=== PATIENT | female | born 1970 | race Caucasian/White ===

== ENCOUNTER 2017-06-28 12:15 | Emergency (ER) | payer OTHER ==
[~2017-06-28] VITALS: Ht 175.3 cm; Wt 74.7 kg
[~2017-06-28 12:15] MED LIST: AMPH20TA2 PO; FLUO10CA48 PO; MULT-506 PO
[2017-06-28 12:19] VITALS: TEMP 36.7; Ht 175.3 cm; Wt 74.7 kg
--- NOTE | 2017-06-28 13:33 | DIAGNOSTIC IMAGING REPORT ---
HEAD WITHOUT CONTRAST (CT) CT DOSE: 537.48 mGy.cm HISTORY: Neuropathy.. Mental status change. distal extrem paresthesias TECHNIQUE: Multiaxial CT images of the head were performed without the use of intravenous contrast. A dose lowering technique was utilized adhering to the principles of ALARA. Comparison: None. Findings: The paranasal sinuses and mastoid air cells are clear. The calvarium and skull base are intact. The ventricles and sulci are within normal limits. There is no mass, hematoma, midline shift, or acute infarct. Impression: No acute intracranial abnormality. The above report was generated using voice recognition software. It may contain grammatical, syntax or spelling errors. Electronically signed by: Riley Tafoya M.D. 06/28/2017 1:32 PM Dictated Date/Time: 06/28/2017 1:30 PM
[2017-06-28] MEDS ORDERED: LISD70CA PO (14:09)
[2017-06-28] MEDS ORDERED: OMEP20CA9 PO (14:09)
--- NOTE | 2017-06-28 14:09 | EMERGENCY ROOM VISIT NOTE ---
History Report prepared by [place]: Baltazar Tarango Under the Supervision of: Dr. Chava Escamilla D.O. First contact with patient: 12:33 Chief Complaint: NEURO SYMPTOMS Stated Complaint: HANDS AND FEET ASLEEP Nursing Triage Summary: patient states when she is sleeping her hands and feet fall asleep and she wakes up with them painful. states she went to PCP on tuesday and he ran some tests but has not gotten results back. states it is irritating and painful History of Present Illness The patient is a 46 year old female who presents to the Emergency Room with complaints of intermittent bilateral hand and feet numbness and tingling beginning three weeks ago. Her symptoms are worse in her hands. She states "it feels like they are asleep". The patient states that her symptoms worsen when she goes to sleep, and improve with movement. She also complains of neck pain. She notes that she has "shooting" lower back pain after standing for a while as well. The patient was seen by her PCP four days ago and had blood-work done, but has not heard back her results. She was using wraps around her hands recently, but this has not helped her symptoms. Source of History: patient Onset: Three weeks ago Position: hand (bilateral), foot (bilateral) Quality: other (numbness and tingling) Timing: intermittent Modifying Factors (Worsening): other (sleeping) Modifying Factors (Relieving): movement Associated Symptoms: + neck pain, + back pain (lower, "shooting", after standing for a while) Review of Systems See HPI for pertinent positives & negatives. A total of 10 systems reviewed and were otherwise negative. Past Medical & Surgical Medical Problems: (1) No Known Active Medical Problems Family History No pertinent family history stated. Social History Smoking Status: Current Every Day Smoker Drug Use: marijuana, other Marital Status: single Housing Status: lives with family Occupation Status: employed Current/Historical Medications Scheduled Bupropion (Wellbutrin Sr), 450 MG PO QAM Lisdexamfetamine Dimesylate (Vyvanse), 70 MG PO DAILY Multivitamin (Multivitamin), 1 TAB PO DAILY Omeprazole (Prilosec), 20 MG PO DAILY Allergies Coded Allergies: Sulfa Antibiotics (Unverified Allergy, Unknown, UNKNOWN, 06/28/17) Physical Exam Vital Signs Date Time Temp Pulse Resp B/P (MAP) Pulse Ox O2 Delivery O2 Flow Rate FiO2 06/28/17 12:19 36.7 78 20 128/73 100 Room Air Physical Exam VITAL SIGNS: were reviewed as above. GENERAL:Non-toxic in appearance. SKIN: Warm dry and pink. HEAD: Normocephalic and atraumatic. OROPHARYNX: Is clear and moist NECK: Supple without lymphadenopathy or meningismus. LUNGS: clear. HEART: Regular rate and rhythm. ABDOMEN: Soft and nontender. EXTREMITIES: Warm and well perfused. NEUROLOGICALLY: Awake alert and oriented without focal deficit. Cranial nerves 2 -12 are intact. There is no pronator drift. Cerebellar testing is within normal limits. There is no nystagmus. There is no facial droop. Speech is clear. Vision is grossly normal. MUSCULOSKELETAL: Good muscle tone. No evidence of trauma. Medical Decision & Procedures ER Provider Diagnostic Interpretation: Radiology results as stated below per my review and radiologist interpretation: HEAD WITHOUT CONTRAST (CT) Findings: The paranasal sinuses and mastoid air cells are clear. The calvarium and skull base are intact. The ventricles and sulci are within normal limits. There is no mass, hematoma, midline shift, or acute infarct. Impression: No acute intracranial abnormality. The above report was generated using voice recognition software. It may contain grammatical, syntax or spelling errors. Electronically signed by: Riley Tafoya M.D. ED Course 1253: Previous medical records were reviewed. The patient was evaluated in room B6. A complete history and physical examination was performed. 1252: Laboratory results obtained from [facility]. Labs included a complete metabolic panel which was normal. TSH was normal. Vitamin B-12 level was normal. Folic acid level was normal. 1408: On reevaluation, the patient is resting comfortably. I discussed the results and findings with the patient. She verbalized agreement of the treatment plan. She was discharged home. Medical Decision Differential includes acute coronary syndrome, myocardial infarction, CVA, TIA, anemia, infection, pneumonia, UTI, pyelonephritis, poor nutrition, dehydration, electrolyte disturbance, and hypoglycemia. This is a 46-year-old female who presents to the ED with a chief complaint of paresthesias in her hands and feet. She states that this is been going on for the past 3 weeks. She states that she saw her doctor on Tuesday and had blood test performed but is awaiting the results. It occurred this morning and she came in for evaluation. The patient's blood work included a complete metabolic panel, vitamin D B12, folic acid, cholesterol and thyroid function. These tests were unremarkable for abnormalities. The patient's physical exam today reveals normal strength in the extremities, normal pulses, normal capillary refill and no edema. There was no abnormalities on my exam. No tenderness with the exam. Full range of motion. The patient was told the results of her blood work. CT scan of the brain did not show acute process. The patient was told to follow-up with her PCP. Neurology and/or endocrine follow-up might be beneficial. Medication Reconcilliation Current Medication List: was personally reviewed by me Blood Pressure Screening Patient's blood pressure: Normal blood pressure Blood pressure disposition: Did not require urgent referral Impression Primary Impression: Paresthesia of both hands Additional Impression: Paresthesia of both feet Scribe Attestation The scribe's documentation has been prepared under my direction and personally reviewed by me in its entirety. I confirm that the note above accurately reflects all work, treatment, procedures, and medical decision making performed by me. Departure Information Dispostion Home / Self-Care Referrals Riley Mccabe M.D. (PCP) Patient Instructions My [facility] Additional Instructions Follow-up with your doctor for further care and evaluation in 1-2 days. Return to the emergency department for worsening or new symptoms or any concerns. You have been examined and treated today on an emergency basis only. This is not a substitute for, or an effort to provide, complete comprehensive medical care. It is impossible to recognize and treat all injuries or illnesses in a single emergency department visit. It is therefore important that you follow up closely with your doctor. Call as soon as possible for an appointment. Problem Qualifiers
[2017-06-28] MEDS ORDERED: BUPR-79 PO (14:11)
[2017-06-28 14:21] VITALS: BP 126/78; PULSE 75; O2SAT 96
== END 2017-06-28 14:22 | disposition home or self-care (01) ==
LOC: C.EDB 12:16
DX: R20.0 Anesthesia of skin (principal); F17.200 Nicotine dependence, unspecified, uncomplicated; F12.90 Cannabis use, unspecified, uncomplicated

== ENCOUNTER 2021-12-06 04:37 | Inpatient (IN) ==
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
[2021-12-06 06:09] LABS: Basophils # (auto) 0.02 K/uL (0-0.2); Basophils % (auto) 0.3 %; Eosinophils # (auto) 0.02 K/uL (0-0.50); Eosinophils % (auto) 0.3 %; Hematocrit (blood only) 41.1 % (34.1-44.9); Hemoglobin 13.8 g/dl (12.0-16.0); Lymphocytes # (auto) 1.91 K/uL (1.2-3.4); Lymphocytes % (auto) 33.2 %; Mean Corpuscular Hemoglobin 29.7 pg (25.0-34.0); Mean Corpuscular Hgb Conc 33.6 g/dL (32.0-36.0); Mean Corpuscular Volume 88.4 fL (80.0-100.0); Mean Platelet Volume 10.2 fL (9.4-12.3); Monocytes # (auto) 0.51 K/uL (0.24-0.82); Monocytes % (auto) 8.9 %; Neutrophils % (auto) 57.3 %; Platelet Count 291 K/uL (130-400); RDW Coefficient of Variation 13.9 % (11.5-14.5); Red Blood Count 4.65 M/uL (3.93-5.22); White Blood Count 5.76 K/ul (4.8-10.8)
[2021-12-06] MEDS ORDERED: NICOTINE 14 MG/24 HR PATCH TD STA (06:23)
[2021-12-06 06:33] LABS: Appearance Urine Clear (Clear); Bilirubin Urine Negative (Negative); Blood Urine Negative (Negative); Color Urine Yellow; Glucose Urine UA Negative (Negative); Ketones Urine Negative (Negative); Leukocyte Esterase Urine Negative (Negative); Nitrite Urine Negative (Negative); Protein Urine Negative (Negative); Specific Gravity Urine 1.005 (1.000-1.030); Urobilinogen Urine Negative (Negative)
[2021-12-06 06:39] LABS: Alanine Aminotransferase 11 U/L (7-52); Albumin Globulin Ratio 1.3 (0.9-2); Albumin Level 4.5 gm/dl (3.4-5.0); Alkaline Phosphatase 94 U/L (34-104); Anion Gap 10 (3-11); Aspartate Aminotransferase 19 U/L (13-39); BUN Creatinine Ratio 13.6 (10-20); Bilirubin,Total 0.4 mg/dl (0.2-1.0); Blood Urea Nitrogen 9 mg/dl (6-23); Calcium 9.8 mg/dl (8.5-10.1); Carbon Dioxide 24 mmol/L (21-32); Chloride 102 mmol/L (98-107); Est GFR (African American) 118.5 ml/min; Est GFR (Non-African American) 102.3 ml/min; Globulin 3.6 gm/dl (2.5-4.0); Glucose 111 mg/dl (70-99(Fasting)); Potassium 3.3 mmol/L (3.5-5.1); Sodium 136 mmol/L (136-145); Total Protein 8.1 gm/dl (6.0-8.3)
[2021-12-06 06:42] LABS: Acetaminophen < 3 ug/ml (10-30); Salicylate < 3.0 mg/dl (3.0-30)
[2021-12-06] MEDS ORDERED: OLANZapine 10 MG TAB PO STA (07:01)
[2021-12-06] MEDS ORDERED: LORazepam 2 MG/1 ML VIAL IM STA (07:16)
[2021-12-06] MEDS ORDERED: HALOPERIDOL LACTATE 5 MG/ML 1 ML VIAL IM STA (07:16)
[2021-12-06 07:57] LABS: Amphetamines+Metham, Urine Neg (Neg); Barbiturates, Urine Neg (Neg); Benzodiazepine, Urine Pos (Neg); Cocaine, Urine Neg (Neg); MDMA (Ecstacy), Urine Pos (Neg); Methadone, Urine Neg (Neg); Opiate, Urine Neg (Neg); Phencyclidine, Urine Neg (Neg)
[2021-12-06] MEDS ORDERED: POTASSIUM CHLORIDE CRTAB 20 MEQ TABCR PO ONE (10:48)
[2021-12-06] MEDS ORDERED: POTASSIUM CHLORIDE CRTAB 20 MEQ TABCR PO SCH (10:48)
[2021-12-06] MEDS ORDERED: ACETAMINOPHEN 325 MG TAB PO PRN (10:48)
--- NOTE | 2021-12-06 11:17 | History & Physical Report ---
Date of Service December 06, 2021 Assessment & Plan (1) Paranoia (psychosis): (2) Anxiety: (3) Depression: (4) ADD (attention deficit disorder): Plan: Admit to [facility] Patient presenting to ED by police escort after family found her to be extremely paranoid, aggressive, making statements that she wanted to . Admitted to [facility] for rehab for polysubstance abuse on 11/19, patient signed herself out on 12/05 due to fear that her stalker signed into the same facility. History of ADD, anxiety, depression. Most recently prescribed bupropion, dextroamphetamine, duloxetine, Vyvanse. Received IM Haldol and IM lorazepam in the ED Family completed 302 which was signed by ED physician Psych Consult (5) COVID-19: Plan: Positive for COVID-19 Seems to be asymptomatic, saturating well on room air No treatment indicated (6) Hypokalemia: Plan: K+ 3.3 Check Mg+ Replace, follow electrolytes (7) Contraindication to deep vein thrombosis (DVT) prophylaxis: Admission and Anticipated Discharge Date Admission Date: December 06, 2021 History of Present Illness Chief Complaint: Paranoia, Agression Primary Care Provider: Riley Mccabe MD 51-year-old female with PMH polysubstance abuse, depression, anxiety, ADD, and other problems listed below who was brought to the ED by police escort for aggressive behaviors and paranoia. History is currently unobtainable from the patient. ED psychiatric returned case inspector notes reviewed. According to patient's family, patient was admitted to [facility] on 11/19 for rehab for polysubstance abuse. Patient signed herself out yesterday as she believes that her stalker signed into the same facility. Upon returning home, patient was expressing thoughts of wanting to . Patient had taken a pair of gardening marco a and gave to a family member stating " please take these, I want to ." Patient's family also reported a history of heavy alcohol use, marijuana, Xanax. In the ED, patient required IM Haldol and IV lorazepam. She also has tested positive for COVID-19. She is saturating well on room air. Allergies Allergy/AdvReac Type Severity Reaction Status Date / Time Sulfa (Sulfonamide Allergy Unknown UNKNOWN Unverified 10/27/20 14:54 Antibiotics) Home Medications Medication Instructions Recorded Confirmed Type omeprazole 20 mg capsule,delayed 20 mg PO DAILY 12/06/21 12/06/21 History release duloxetine 30 mg capsule,delayed 30 mg PO DAILY 14 days #14 caps 12/09/21 Rx release olanzapine 5 mg tablet 5 mg PO HS 14 days #14 tabs 12/09/21 Rx Past Med/Surg History Medical History ADD (attention deficit disorder) Anxiety Degenerative disc disease Depression Lumbar spinal stenosis Surgical History No pertinent past surgical history Family History Father Hypertension Mother Hypertension Social History Smoking Status: Current every day smoker Tobacco Type: Cigarettes and E-cigarettes / Vaping Hx Alcohol Use: Yes Hx Substance Use: No (States "just what's prescribed to me.") Preferred Language: Azeri Communication Ability: Effective Informatics Manager Required: No Beliefs That Will Affect Care: None Current Living Situation: Other Current Living Situation Comment: Left Rehab AMA, 302 to hospital Feels Safe at Home: Hesitant to Answer Assistive Devices: None Review of Systems Review of Systems: Unobtainable due to mental health condition Physical Exam Physical Exam: please refer to Dr. Camarillo's addendum for physical exam Results & Data Results & Data ([facility]) Vital Signs (Past 12 Hours) Vital Signs Temp Pulse Pulse Resp BP BP Pulse Ox 12/06/21 10:08 86 18 133/83 100 12/06/21 04:41 36.7 C 88 18 166/96 H 96 O2 Del Method 12/06/21 10:08 Room Air 12/06/21 04:41 Room Air Laboratory Results Short CBC 12/06/21 Range/Units 05:26 WBC 5.76 (4.8-10.8) K/ul Hgb 13.8 (12.0-16.0) g/dl Hct 41.1 (34.1-44.9) % Plt Count 291 (130-400) K/uL BMP 12/06/21 05:26 Sodium 136 Potassium 3.3 L Chloride 102 Carbon Dioxide 24 BUN 9 Creatinine 0.66 Glucose 111 H Calcium 9.8 Liver Function 12/06/21 Range/Units 05:26 Total Bilirubin 0.4 (0.2-1.0) mg/dl AST 19 (13-39) U/L ALT 11 (7-52) U/L Alkaline Phosphatase 94 (34-104) U/L Albumin 4.5 (3.4-5.0) gm/dl Urine 12/06/21 Range/Units 05:50 Urine Color Yellow Urine Appearance Clear (Clear) Urine pH 6.0 (4.5-7.5) Ur Specific [place] 1.005 (1.000-1.030) Urine Protein Negative (Negative) Urine Glucose (UA) Negative (Negative) Supervising Physician Co-Signing Physician Notes Pt was seen and examined. Agreed with Radha CHUN exam, assessment and plan. 51-year-old female with PMH polysubstance abuse, depression, anxiety, ADD was brought to the ED by police escort for aggressive behaviors and paranoia. Pt was recently signed herself out from inpatient rehab for polysubstance abuse after she thought her signed into the same facility. Pt was brought to the ER after she was expressing thoughts of wanting to . She was found to be positive with COVID 19 and she was asymptomatic. In the ED, patient required IM Haldol and IV lorazepam. Due to the positive Covid 19, pt was not able to admit to the mental health unit and we were asking to admit her. Continue 1 to 1 sitter. Will monitor closely for any suicidal sign. Will consult sign. Continue monitor closely. MD Marquise
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
[2021-12-06] MEDS: OLANZapine 5 MG TABLET PO SCH (21:36)
[2021-12-07 07:32] LABS: Anion Gap 6 (3-11); BUN Creatinine Ratio 20.8 (10-20); Blood Urea Nitrogen 15 mg/dl (6-23); Calcium 9.1 mg/dl (8.5-10.1); Carbon Dioxide 25 mmol/L (21-32); Chloride 107 mmol/L (98-107); Est GFR (African American) 112.4 ml/min; Glucose 93 mg/dl (70-99(Fasting)); Potassium 4.2 mmol/L (3.5-5.1); Sodium 138 mmol/L (136-145)
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
[2021-12-07] MEDS: NICOTINE 14 MG/24 HR PATCH TD SCH (14:40)
[2021-12-07] MEDS: OLANZapine 5 MG TABLET PO SCH (20:24)
--- NOTE | 2021-12-07 21:20 | Hospitalist Progress Note ---
Date of Service December 07, 2021 Assessment & Plan (1) Paranoia (psychosis): (2) Anxiety: (3) Depression: (4) ADD (attention deficit disorder): Plan: Bipolar Type 2 Presented to the ED by police escort after family found her to be extremely paranoid, aggressive, making statements that she wanted to . Admitted to [facility]hab for polysubstance abuse on 11/19, patient signed herself out on 12/05 due to fear that her stalker signed into the same facility. History of ADD, anxiety, depression. Most recently prescribed bupropion, dextroamphetamine, duloxetine, Vyvanse. Received IM Haldol and IM lorazepam in the ED Family completed 302 which was signed by ED physician Psych on board recommended to continue Zyprexa 5 mg daily (5) COVID-19: Plan: Positive for COVID-19 Denies any symptoms of URI No treatment indicated for remdesivir or dexamethasone Continue monitor (6) Hypokalemia: Plan: K+ 3.3 on admission, K 4.2 today Continue monitor DVT px consider to add on Lovenox Will encourage pt to walk in her room Admission and Anticipated Discharge Date Admission Date: December 06, 2021 Subjective Pt was seen and examined for follow up of COVID 19 and psychosis Lying in bed with no acute distress with 1 to 1 observation Pt said that she feels ok Pt said that during her times to rehab there was a floor with covid 19 people Pt does not believe the positive COVID 19 is true positive. She would like to get it repeat She denies any suicidal thought, hallucination, URI and psychosis Review of Systems Review of Systems: All systems reviewed & are unremarkable except as noted in Subjective Physical Exam Physical Exam: General- No acute distress Head- atraumatic Eyes- PERRL, EOMI, ENT- oropharynx clear Neck- supple, no JVD Lungs- clear to auscultation Heart- regular rhythm; no murmur Abdomen- normal bowel sounds, soft, nontender Extremities- no calf tenderness Neuro- alert, oriented x 3; PERRL, EOMI; no facial palsy; no dysarthria Skin- warm & dry Results & Data Results & Data ([facility]) Vital Signs (Past 12 Hours) Vital Signs Temp Pulse Resp BP Pulse Ox O2 Del Method 08/01/22 15:47 36.5 C 89 18 107/66 93 Room Air
[2021-12-08] MEDS: MELATONIN 3 MG TAB PO PRN ×2 (00:21→21:51)
--- NOTE | 2021-12-08 06:07 | Psychiatric Progress Note ---
Date of Service December 08, 2021 Impression / Recommendations Impression 51 yo female with acute onset of psychosis 2 weeks into rehab stay, was abusing multiple substances prior to placement there. Differential includes protracted withdrawal, related to COVID (hx of COVID in October as well), bipolar episode, substance use in rehab (she denies, MDMA+ likely Wellbutrin rx, MJ use was prior to stay, benzo may have been related to rx in ED). Patient now admits to taking Wellbutrin 600 mg daily for a period of time leading up to her increase in substance abuse/rehab stay. Case reviewed with Dr. Jaime pm of 12/07--he states that he was aware of the Wellbutrin misuse and he feels she has managed Vyvanse well up to this point and he has not seen evidence of bipolar disorder and primary diagnosis remains MDD. He would support her restarting Cymbalta when safe to do so. 12/08/21: improving (1) Depression: (2) Paranoia (psychosis): (3) ADD (attention deficit disorder): (4) Polysubstance abuse: Plan Risks/benefits/alternatives were reviewed re: antipsychotics for mood and/or psychosis. Discussion included but was not limited to metabolic side effects, risks of TD and suicidal thoughts. There were no abnormal motor movements at baseline. Fasting glucose and lipid panel deferred as likely short term medication, and/or would be cross tapered within brief period to another mood stabilizer with better metabolic profile. will resume Cymbalta at lower dose for anxiety/depressive features continue Zyprexa 5 mg daily for now remains on 1-on-1 in CovID isolation on 302 commitment family meeting recommended referral to [facility]. 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 She is a completed 302 but admitted to the medical floor for respiratory isolation given COVID + status. She was seen via telehealth given COVID + status. Chief Complaint "I'm feeling so much better." Telehealth Telehealth Options: Telephone only For the duration of the visit, provider was performing the assessment from: The same facility as the patient After establishing a telemedicine visit, patient was: Patient was verified with two unique identifiers, Patient/authorized rep acknowledged consent and understanding and Gave permission to continue telehealth session Total Time Spent (minutes): 18 Subjective Subjective Patient was seen & assessed and interval progress reviewed with nursing and social work. She reports mentally feeling clearer and more stable. She is willing for a dual dx IOP. She denies suicidal thoughts and has been cooperative and interactive with staff. Her niece was contacted and described some activation that she attributed to Wellbutrin per liaison. Physical Exam Psychiatric Orientation: alert Speech: normal rate/rhythm/volume of speech Mood: + depressed mood Thought Process: + concrete thought process Suicidal Thoughts: denies suicidal thoughts Homicidal Thoughts: denies homicidal thoughts Hallucinations: no auditory hallucinations and no visual hallucinations Cognition: attention grossly intact and language grossly intact Estimated Intelligence: consistent with education level Vital Signs (Past 24 Hours) Last Vital Signs Temp 36.9 C 12/07/21 22:29 Pulse 79 12/07/21 22:29 Resp 16 12/07/21 22:29 BP 144/91 H 12/07/21 22:29 Pulse Ox 97 12/07/21 22:29 O2 Del Method 12/07/21 22:29 Results & Data ([facility]) Laboratory Results Laboratory Results - last 24 hr 12/07/21 12/07/21 06:13 14:40 Sodium 138 Potassium 4.2 D Chloride 107 Carbon Dioxide 25 Anion Gap 6 BUN 15 Creatinine 0.72 Est Cr Clr Drug Dosing Not Reportable Est GFR ( Amer) 112.4 Est GFR (Non-Af Amer) 97.0 BUN/Creatinine Ratio 20.8 H Glucose 93 Calcium 9.1 SARS-CoV-2 (PCR) POSITIVE A* Current Inpatient Medications Current Inpatient Medications: Current Inpatient Medications Acetaminophen (Acetaminophen 325 Mg Tab) 650 mg PO Q4H PRN PRN Reason: pain/fever Stop: 01/05/22 10:47 Last Admin: 12/08/21 00:20 Dose: 650 mg Melatonin (Melatonin 3 Mg Tab) 3 mg PO HS PRN PRN Reason: Sleep Stop: 01/06/22 23:51 Last Admin: 12/08/21 00:21 Dose: 3 mg Miscellaneous (Remove Nicoderm Patch) 1 each N/A DAILY@0859 [facility] Stop: 01/07/22 08:58 Nicotine (Nicotine 14 Mg/24 Hr Patch) 14 mg TD QAM [facility] Stop: 01/06/22 13:59 Last Admin: 12/07/21 14:40 Dose: 14 mg Olanzapine (Olanzapine 5 Mg Tablet) 5 mg PO HS [facility]IE Stop: 01/05/22 20:59 Last Admin: 12/07/21 20:24 Dose: 5 mg
[2021-12-08] MEDS: NICOTINE 14 MG/24 HR PATCH TD SCH (08:31)
[2021-12-08] MEDS: DULoxetine HCL 30 MG CAP PO SCH (12:21)
[2021-12-08] MEDS: OLANZapine 5 MG TABLET PO SCH (21:51)
--- NOTE | 2021-12-08 23:48 | Hospitalist Progress Note ---
Date of Service December 08, 2021 Assessment & Plan (1) Paranoia (psychosis): (2) Anxiety: (3) Depression: (4) ADD (attention deficit disorder): Plan: Bipolar Type 2 Presented to the ED by police escort after family found her to be extremely paranoid, aggressive, making statements that she wanted to . Ad[facility] for polysubstance abuse on 11/19, patient signed herself out on 12/05 due to fear that her stalker signed into the same facility. History of ADD, anxiety, depression. Most recently prescribed bupropion, dextroamphetamine, duloxetine, Vyvanse. Received IM Haldol and IM lorazepam in the ED Family completed 302 which was signed by ED physician Psych on board recommended to continue Zyprexa 5 mg daily (5) COVID-19: Plan: Positive for COVID-19 Repeat COVID 19 tested positive yesterday Denies any symptoms of URI Saturated well on RA No treatment indicated for remdesivir or dexamethasone Stable from medical standpoint (6) Hypokalemia: Plan: K+ 3.3 on admission, K 4.2 today Continue monitor DVT px consider to add on Lovenox She has been walking in her room Stable from medical standpoint Admission and Anticipated Discharge Date Admission Date: December 06, 2021 Subjective Pt was seen and examined for follow up of COVID 19 and psychosis Lying in bed with no acute distress with 1 to 1 sitter and her mother at bedside Pt said that she feels fine She denies any suicidal thought, hallucination, URI and psychosis Review of Systems Review of Systems: All systems reviewed & are unremarkable except as noted in Subjective Physical Exam Physical Exam: General- No acute distress Head- atraumatic Eyes- PERRL, EOMI, ENT- oropharynx clear Neck- supple, no JVD Lungs- clear to auscultation Heart- regular rhythm; no murmur Abdomen- normal bowel sounds, soft, nontender Extremities- no calf tenderness Neuro- alert, oriented x 3; PERRL, EOMI; no facial palsy; no dysarthria Skin- warm & dry Results & Data Results & Data ([facility]) Vital Signs (Past 12 Hours) Vital Signs Temp Pulse Resp BP Pulse Ox O2 Del Method 12/08/21 21:49 36.7 C 79 16 138/92 96 Room Air 12/08/21 14:50 36.6 C 80 18 142/80 H 97 Room Air
--- NOTE | 2021-12-09 07:52 | Hospitalist Progress Note ---
Date of Service December 09, 2021 Assessment & Plan (1) Paranoia (psychosis): (2) Anxiety: (3) Depression: (4) ADD (attention deficit disorder): Plan: Bipolar Type 2 Presented to the ED by police escort after family found her to be extremely paranoid, aggressive, making statements that she wanted to . Admitted [facility] for [facility] for polysubstance abuse on 11/19, patient signed herself out on 12/05 due to fear that her stalker signed into the same facility. History of ADD, anxiety, depression. Most recently prescribed bupropion, dextroamphetamine, duloxetine, Vyvanse. Received IM Haldol and IM lorazepam in the ED Family completed 302 which was signed by ED physician Psych on board recommended to continue Zyprexa 5 mg daily 12/09 -contacted by psychiatry, okay to discharge after family meeting today. Continue Zyprexa 5 mg daily, and duloxetine 30. Stop taking other medications. Follow-up with intensive outpatient program on December 15, and follow-up with her psychiatrist on December 21 scheduled. (5) COVID-19: Plan: Positive for COVID-19 Repeat COVID 19 tested positive Denies any symptoms of URI Saturated well on RA No treatment indicated for remdesivir or dexamethasone Stable from medical standpoint (6) Hypokalemia: Plan: K+ 3.3 on admission, repeat K 4.2 Continue monitor DVT px consider to add on Lovenox She has been walking in her room Stable from medical standpoint Admission and Anticipated Discharge Date Admission Date: December 06, 2021 Subjective Pt was seen and examined for follow up of COVID 19 and psychosis Sitting up in chair, conversing easily, no acute distress, 1 to 1 sitter present Pt said that she feels fine She denies any suicidal thought, hallucination, URI and psychosis No chest pain shortness of breath, no cough Contacted by psychiatry, okay to discharge after lunch meeting with patient's family Review of Systems Review of Systems: All systems reviewed & are unremarkable except as noted in Subjective Physical Exam Physical Exam: General- No acute distress Head- atraumatic Eyes- PERRL, EOMI, ENT- oropharynx clear Neck- supple, no JVD Lungs- clear to auscultation Heart- regular rhythm; no murmur Abdomen- normal bowel sounds, soft, nontender Extremities- no calf tenderness Neuro- alert, oriented x 3; PERRL, EOMI; no facial palsy; no dysarthria, answers appropriately, moves extremities Skin- warm & dry Results & Data Results & Data ([facility]) Vital Signs (Past 12 Hours) Vital Signs Temp Pulse Resp BP Pulse Ox O2 Del Method 12/09/21 07:26 36.8 C 81 20 135/91 96 Room Air 12/08/21 21:49 36.7 C 79 16 138/92 96 Room Air Medications Administered Current Inpatient Medications Acetaminophen (Acetaminophen 325 Mg Tab) 650 mg PO Q4H PRN PRN Reason: pain/fever Stop: 01/05/22 10:47 Last Admin: 12/08/21 00:20 Dose: 650 mg Duloxetine HCl (Duloxetine Hcl 30 Mg Cap) 30 mg PO QAM [facility] Stop: 01/07/22 11:14 Last Admin: 12/08/21 12:21 Dose: 30 mg Melatonin (Melatonin 3 Mg Tab) 3 mg PO HS PRN PRN Reason: Sleep Stop: 01/06/22 23:51 Last Admin: 12/08/21 21:51 Dose: 3 mg Miscellaneous (Remove Nicoderm Patch) 1 each N/A DAILY@0859 [facility] Stop: 01/07/22 08:58 Last Admin: 12/08/21 08:32 Dose: 1 each Nicotine (Nicotine 14 Mg/24 Hr Patch) 14 mg TD QAM [facility] Stop: 01/06/22 13:59 Last Admin: 12/08/21 08:31 Dose: 14 mg Olanzapine (Olanzapine 5 Mg Tablet) 5 mg PO HS [facility] Stop: 01/05/22 20:59 Last Admin: 12/08/21 21:51 Dose: 5 mg
[2021-12-09] MEDS: NICOTINE 14 MG/24 HR PATCH TD SCH (09:27)
[2021-12-09] MEDS: DULoxetine HCL 30 MG CAP PO SCH (10:14)
--- NOTE | 2021-12-09 11:56 | Discharge Summary ---
Date of Service December 09, 2021 Admission HPI Per Admitting Provider 51-year-old female with H polysubstance abuse, depression, anxiety, ADD, and other problems listed below who was brought to the ED by police escort for aggressive behaviors and paranoia. History is currently unobtainable from the patient. ED psychiatric mental health case manager notes reviewed. According to patient's family, patient was admitted to [facility] on 11/19 for rehab for polysubstance abuse. Patient signed herself out yesterday as she believes that her stalker signed into the same facility. Upon returning home, patient was expressing thoughts of wanting to . Patient had taken a pair of gardening marco a and gave to a family member stating " please take these, I want to ." Patient's family also reported a history of heavy alcohol use, marijuana, Xanax. In the ED, patient required IM Haldol and IV lorazepam. She also has tested positive for COVID-19. She is saturating well on room air. Admission Exam Per Admitting Provider per ED note: HEENT: Head - normocephalic and atraumatic Pupils are equal, round, and reactive to light. Extraocular eye muscles are intact, and sclera are anicteric. Nose - moist nasal mucosa without discharge. Mouth - moist buccal mucosa. Oropharynx is nonerythematous and there is no tonsillar exudate or edema noted. Neck: Supple; no JVD, nuchal rigidity, cervical lymphadenopathy, or auscultated bruits. Heart: Regular rate and rhythm. There is a normal S1 and S2 with no murmurs, clicks, or gallops appreciated. Lungs: Clear to auscultation bilaterally with no wheezes, rales, or rhonchi. Abdomen: Soft, completely nontender, nondistended, with good bowel sounds. There are no palpable pulsatile masses or hepatosplenomegaly. There is no guarding, rigidity, or rebound noted. Extremities: No evidence of cyanosis, clubbing, or edema. There are easily palpable peripheral pulses. Skin: warm and dry with good turgor and no rashes. Psych: The patient has obvious paranoia and continues to hallucinate. She has significant difficulty even answering simple questions. She has a tangential thought process. Principal Diagnosis Depression, paranoia/psychosis COVID-19 positive Discharge Exam General- No acute distress Head- atraumatic Eyes- PERRL, EOMI, ENT- oropharynx clear Neck- supple, no JVD Lungs- clear to auscultation Heart- regular rhythm; no murmur Abdomen- normal bowel sounds, soft, nontender Extremities- no calf tenderness Neuro- alert, oriented x 3; PERRL, EOMI; no facial palsy; no dysarthria, answers appropriately, moves extremities Skin- warm & dry Discharge Data Allergies Allergy/AdvReac Type Severity Reaction Status Date / Time Sulfa (Sulfonamide Allergy Unknown UNKNOWN Unverified 10/27/20 14:54 Antibiotics) Consultations 12/06/21 08:43 ED Decision to Admit Stat 12/06/21 08:49 Consult Mental Health [Consult Psychiatry] Routine Hospital Course (1) Paranoia (psychosis): (2) Anxiety: (3) Depression: (4) ADD (attention deficit disorder): Bipolar Type 2 Presented to the ED by police escort after family found her to be extremely paranoid, aggressive, making statements that she wanted to . Admitted to [facility] for [facility]hab for polysubstance abuse on 11/19, patient signed herself out on 12/05 due to fear that her stalker signed into the same facility. History of ADD, anxiety, depression. Most recently prescribed bupropion, dextroamphetamine, duloxetine, Vyvanse. Received IM Haldol and IM lorazepam in the ED Family completed 302 which was signed by ED physician Psych on board recommended to continue Zyprexa 5 mg daily 12/09 -contacted by psychiatry, okay to discharge after family meeting today. Continue Zyprexa 5 mg daily, and duloxetine 30. Stop taking other medications. Follow-up with intensive outpatient program on December 15, and follow-up with her psychiatrist on December 21 scheduled. (5) COVID-19: Positive for COVID-19 Repeat COVID 19 tested positive Denies any symptoms of URI Saturated well on RA No treatment indicated for remdesivir or dexamethasone Stable from medical standpoint (6) Hypokalemia: K+ 3.3 on admission, repeat K 4.2 Continue monitor DVT px consider to add on Lovenox She has been walking in her room Stable from medical standpoint Total Time Total Time Spent Total Time Spent (In Minutes): 40 Discharge Plan Discharge Items Patient Disposition: Home - Self-Care Reason For Visit: PARANOIA,COVID + Discharge Diagnosis: Depression, paranoia/psychosis COVID-19 positive Activity: Per Instructions section Non-emergency contact: Primary Care Provider and Psychiatrist Call non-emergency contact if: you have any medication questions and your symptoms worsen Follow-up/Referrals: Riley Mccabe MD [Primary Care Provider] - 12/17/21 9:40 am (Date & Time 12/17/2021 9:40 AM Provider Riley Mccabe MD [facility] ) Diet: Regular Addtl Attending Provider Instructions: Follow-up with intensive outpatient program, on December 15, and your psychiatrist on December 21. Follow-up with primary care doctor within 1 to 2 weeks. Take olanzapine 5 mg daily, and duloxetine 30 mg daily, as prescribed. Stop taking discontinued medications on the list, as discussed with psychiatry. 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 It is caused by a coronavirus called 2019 novel coronavirus (2019- nCoV). There are many types of coronavirus. Coronaviruses are a very common cause of bronchitis. They may sometimes cause lung infection(pneumonia). Symptoms can range from mild to severe respiratory illness. These viruses are also foundin some animals. COVID-19 was first found in people in [facility], in late 2018. In 2020, several cases of COVID-19 have been confirmed in the [place] Public health officials are working to find the source. How the virus spreads is not yet fully known. It may be spread through droplets of fluid that a person coughs or sneezes into the air. It may be spread if you touch a surface with virus on it, such as a handle or object, and then touch your mouth. What are the symptoms of COVID-19? Some people have no symptoms or mild symptoms. Symptoms may appear 2 to 14 days after contact with the virus. Symptoms can include: Fever Coughing Trouble breathing What are possible complications from COVID-19? In many cases, this virus can cause infection (pneumonia) in both lungs. In some cases, this can cause . How is COVID-19 diagnosed? Your healthcare provider will ask about your symptoms. He or she will also ask about your recent travel and contact with sick people. Testing for the virus is only done through the CDC. If yourhealthcare provider thinks you may have COVID- 19, he or she will work with your local health department and the CDC on testing. Follow all instructions from your healthcare provider. COVID-19 is diagnosed by: Nasal and throat swab. A cotton-tipped swab is wiped inside your nose or throat. This is done to check for viruses in your nasal mucus. Sputum culture. A small sample of mucus coughed from your lungs (sputum) is collected if you have a cough. It is checked for the virus. How is COVID-19 treated? There is currently no medicine to treat the virus. Treatment is done to help your body while it fights the virus. This is known as supportive care. Supportiv e care may include: Pain medicine. These include acetaminophen and ibuprofen. They are used to help ease pain and reduce fever. Bed rest. This helps your body fight the illness. For severe illness, you may need to stay in the hospital. Care during severe illness may include: IV (intravenous) fluids.These are given through a vein to help keep your body hydrated. Oxygen. Supplemental oxygen or ventilation with a breathing machine (ventilator) may be given. This is done to keep enough oxygen in your body. Are you at risk for COVID-19? If youve been to a place where people have been sick with this virus, you are at risk for infection. You are at risk if you: Recently traveled to an affected area Had contact with a sick person who recently traveled to this area Had contact with a person who was diagnosed with COVID-19 How can COVID-19 be prevented? There is no vaccine yet. The best prevention is to not have contact with the virus. The CDC advises that people should not travel to areas where there are COVID-19 outbreaks right now for any reason that is not urgent. To help prevent spreading the infection, wash your hands often, or use an alcohol-basedhand millinery teacher. If you are in an area with COVID-19: Wash your hands often. Or use an alcohol-based hand millinery teacher often. Only touch your eyes, nose, or mouth with clean hands. Dont have contact with people who are sick. Follow local instructions about being in public. For example, you may be told to not use public transport for a period of time. Stay away from markets that have live or animals. Wash your hands after touching any animals. Don't touch animals that may be sick. Dont share eating or drinking tools with sick people. Dont kiss someone who is sick. Clean surfaces often with disinfectant. If you were in an area with COVID-19 in the last 14 days: Call your healthcare provider. He or she can talk with local health staff to see what action may be needed. Follow all instructions from your provider. Take your temperature every morning and evening for at least 14 days. This is to check for fever. Keep a record of the readings. Keep watch for symptoms of the virus. Tell your provider right away if you have symptoms. If you were in an area with COVID-19 and have a fever or other symptoms: Dont panic. Keep in mind that other illnesses can cause similar symptoms. Stay away from work, school, and public places. Limit physical contact with family members. Don't kiss anyone or share eating or drinking utensils. Clean surfaces you touch with disinfectant. This is to help prevent the virus from spreading. Call your healthcare provider. Explain that you have been exposed to COVID-19 and have symptoms. Do this before going to any hospital. Wait for instructions. Keep in mind that healthcare staff may wear protective equipment such as masks, gowns, gloves, and eye protection. You may be put in a separate room. This is to prevent the possible virus from spreading. Tell the healthcare staff about recent travel. This includes local travel on public transport. Staff may need to find other people you have been in contact with. Follow all instructions the healthcare staff give you. If you have been diagnosed with COVID-19 Follow all instructions from your healthcare provider. Dont leave your home, except to get medical care. Call your healthcare providers office before going. They can prepare and give you instructions. This will help prevent the virus from spreading. Dont go to work, school, or public areas. Dont use public transport or taxis. Stay away from other people in your home. Have them wear face masks around you. Dont share household items or food. Wear a face mask if you can. This includes at home or in a medical facility. Cover your face with a tissue when you cough or sneeze. Throw the tissue away. Wash your hands. Wash your hands often. Caregivers should: Follow all instructions from healthcare staff. Wear a face mask and protective clothing as advised. Wash hands often. Keep track of the sick persons symptoms. Clean surfaces, fabrics, and laundry thoroughly. Keep other people away from the sick person. When to call your healthcare provider Call your healthcare provider: If youve recently traveled and have symptoms If you have been diagnosed with COVID-19 and your symptoms are worse To learn more To find out more about COVID-19, visit the CDC website at www.cdc.gov/coronavirus/2019-ncov/index.html. [employer]. [address] [place] [address] [phone]. All rights reserved. This information is not intended as a substitute for professional medical care. Always follow your healthcare professional's instructions. This information has been adapted from [employer] Home Isolation COVID-19 Instructions The following information about Home Isolation is from the CDC Website: https://www.cdc.gov/coronavirus/2019-ncov/hcp/xtwjrdns-uilfedv-oyodnm.html Stay home except to get medical care People who are mildly ill with COVID-19 are able to isolate at home during their illness. You should restrict activities outside your home, except for getting medical care. Do not go to work, school, or public areas. Avoid using public transportation, ride-sharing, or taxis. Separate yourself from other people and animals in your home People: As much as possible, you should stay in a specific room and away from other people in your home. Also, you should use a separate bathroom, if available. Animals: You should restrict contact with pets and other animals while you are sick with COVID-19, just like you would around other people. Although there have not been reports of pets or other animals becoming sick with COVID-19, it is still recommended that people sick with COVID-19 limit contact with animals until more information is known about the virus. When possible, have another member of your household care for your animals while you are sick. If you are sick with COVID-19, avoid contact with your pet, including petting, snuggling, being kissed or licked, and sharing food. If you must care for your pet or be around animals while you are sick, wash your hands before and after you interact with pets and wear a face mask. Call ahead before visiting your doctor If you have a medical appointment, call the healthcare provider and tell them that you have or may have COVID-19. This will help the healthcare providers office take steps to keep other people from getting infected or exposed. Wear a face mask You should wear a face mask when you are around other people (e.g., sharing a room or vehicle) or pets and before you enter a healthcare providers office. If you are not able to wear a face mask (for example, because it causes trouble breathing), then people who live with you should not stay in the same room with you, or they should wear a face mask if they enter your room. Cover your coughs and sneezes Cover your mouth and nose with a tissue when you cough or sneeze. Throw used tissues in a lined trash can. Immediately wash your hands with soap and water for at least 20 seconds or, if soap and water are not available, clean your hands with an alcohol-based hand millinery teacher that contains at least 60% alcohol. Clean your hands often Wash your hands often with soap and water for at least 20 seconds, especially after blowing your nose, coughing, or sneezing; going to the bathroom; and before eating or preparing food. If soap and water are not readily available, use an alcohol-based hand millinery teacher with at least 60% alcohol, covering all surfaces of your hands and rubbing them together until they feel dry. Soap and water are the best option if hands are visibly dirty. Avoid touching your eyes, nose, and mouth with unwashed hands. Avoid sharing personal household items You should not share dishes, drinking glasses, cups, eating utensils, towels, or bedding with other people or pets in your home. After using these items, they should be washed thoroughly with soap and water. Clean all high-touch surfaces everyday High touch surfaces include counters, tabletops, doorknobs, bathroom fixtures, toilets, phones, keyboards, tablets, and bedside tables. Also, clean any surfaces that may have blood, stool, or body fluids on them. Use a household cleaning spray or wipe, according to the label instructions. Labels contain instructions for safe and effective use of the cleaning product including precautions you should take when applying the product, such as wearing gloves and making sure you have good ventilation during use of the product. Monitor your symptoms Seek prompt medical attention if your illness is worsening (e.g., difficulty breathing).Beforeseeking care, call your healthcare provider and tell them that you have, or are being evaluated for, COVID-19. Put on a face mask before you enter the facility. These steps will help the healthcare providers office to keep other people in the office or waiting room from getting infected or exposed. Ask your healthcare provider to call the local or state health department. Persons who are placed under active monitoring or facilitated self- monitoring should follow instructions provided by their local health department or occupational health professionals, as appropriate. When working with your local health department check their available hours. If you have a medical emergency and need to call 911, notify the dispatch personnel that you have, or are being evaluated for COVID-19. If possible, put on a face mask before emergency medical services arrive. Discontinuing home isolation Patients with confirmed COVID-19 should remain under home isolation precautions until the risk of secondary transmission to others is thought to be low. The decision to discontinue home isolation precautions should be made on a ssbs-ft-toeh basis, in consultation with healthcare providers and critical access hospital and [facility] health departments. Pending Studies at Discharge: No Stand-Alone Forms: My [facility], Smoking Cessation Medications and DC Order Prescriptions: New olanzapine 5 mg Tablet 5 mg PO HS 14 Days Qty: 14 0RF Continued omeprazole 20 mg capsule,delayed release(DR/EC) 20 mg PO DAILY duloxetine 30 mg capsule,delayed release(DR/EC) 30 mg PO DAILY 14 Days Qty: 14 0RF Discontinued dextroamphetamine sulfate 10 mg tablet 10 mg PO DAILY bupropion HCl 300 mg tablet extended release 24 hr 300 mg PO DAILY duloxetine 60 mg capsule,delayed release(DR/EC) 60 mg PO DAILY Vyvanse 70 mg capsule 70 mg PO DAILY Discharge Orders: Discharge Order (Routine); Ordered 12/09/21 Ordered By: Bharat Bro Admission Data Admit Date/Time: 12/06/21 08:48 Attending Provider: Bharat Bro Admit Provider: Ponce Camarillo Primary Care Provider: Riley Mccabe Other Providers: Ponce Camarillo ; Maria Fernanda Davis ; Joanna Mckeon ; Lupe Hess Other Interventions: SANIA Interdisciplinary Discharge Planning Last Done: 12/08/21 14:18
--- NOTE | 2021-12-09 14:34 | Psychiatric Progress Note ---
Date of Service December 09, 2021 Impression / Recommendations Impression 51 yo female with acute onset of psychosis 2 weeks into rehab stay, was abusing multiple substances prior to placement there. Differential includes protracted withdrawal, related to COVID (hx of COVID in October as well), bipolar episode, substance use in rehab (she denies, MDMA+ likely Wellbutrin rx, MJ use was prior to stay, benzo may have been related to rx in ED). Patient now admits to taking Wellbutrin 600 mg daily for a period of time leading up to her increase in substance abuse/rehab stay. Case reviewed with Dr. Jaime pm of 12/07--he states that he was aware of the Wellbutrin misuse and he feels she has managed Vyvanse well up to this point and he has not seen evidence of bipolar disorder and primary diagnosis remains MDD. He would support her restarting Cymbalta when safe to do so. 12/09/21: improving (1) Depression: (2) Paranoia (psychosis): (3) ADD (attention deficit disorder): (4) Polysubstance abuse: Plan d/c on Zyprexa 5 mg until seen by Dr. Jaime, reviewed longer term plan/risks again cymbalta 30 mg daily until seen by Dr. Addison Jaime updated. [facility] for dual dx treatment Dr. Bro updated. 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 She is a completed 302 but admitted to the medical floor for respiratory isolation given COVID + status. She was seen via telehealth given COVID + status. Chief Complaint "I'm ready". Review of Systems Notes denies DARDEN, N, v, D, etc. Telehealth Telehealth Options: Telephone only For the duration of the visit, provider was performing the assessment from: The same facility as the patient After establishing a telemedicine visit, patient was: Patient was verified with two unique identifiers, Patient/authorized rep acknowledged consent and understanding and Gave permission to continue telehealth session Total Time Spent (minutes): 35 Subjective Subjective Patient was seen & assessed and interval progress reviewed with treatment team. Feels mood is stable. No paranoia. Is looking forward to getting back to work. Asked appropriate questions about medication and agreed to family meeting with niece. Physical Exam Psychiatric Orientation: alert Speech: normal rate/rhythm/volume of speech Mood: + depressed mood Suicidal Thoughts: denies suicidal thoughts Homicidal Thoughts: denies homicidal thoughts Hallucinations: no auditory hallucinations and no visual hallucinations Cognition: attention grossly intact Vital Signs (Past 24 Hours) Last Vital Signs Temp 36.8 C 12/09/21 13:21 Pulse 81 12/09/21 13:21 Resp 20 12/09/21 13:21 BP 135/91 12/09/21 13:21 Pulse Ox 96 12/09/21 13:21 O2 Del Method 12/09/21 07:26 Mental Health & Subst Abuse Tx Psychiatrist Name of Psychiatrist: [facility] - Dr. Jaime Psychiatrist's Date of Appointment with Psychiatrist: 12/21/21 Time of Appointment with Psychiatrist: 1:30 p.m. Psychiatric Appointment Comment: Telehealth Therapist Name of Therapist: [facility] - Intensive Outpatient Program Therapist's Date of Therapist Appointment: 12/15/21 Time of Therapist Appointment: 2:30 PM Therapy Appointment Comment: [facility], [address] [place] [address] Post Discharge Appointments Primary Care Physician Name Of Family Doctor: Davide Mccabe Primary [facility] Time of Appointment with PCP: Call to schedule a convenient appointment time. Provider Appointment Comment: [facility] Contact Information Discharge Discharge [address]: [address] [place] [address]
[2021-12-12 14:42] LABS: 7-Aminoclonaz, Confirm NEGATIVE ng/mL (<25); Hydro-Alp Ur, GC/MS NEGATIVE ng/mL (<25); Hydroxyethylflurazepam, Conf NEGATIVE ng/mL (<50); Hydroxymidazolam Ur, GC/MS NEGATIVE ng/mL (<50); Hydroxytriazolam NEGATIVE ng/mL (<50); Lorazepam, Ur GC/MS NEGATIVE ng/mL (<50); MDA negative; MDEA negative; MDMA (Ecstasy) Urine, Confirm negative; Marijuana Quant, GCMS Urine 48 ng/mL (<5); Nordiazepam, Confirm NEGATIVE ng/mL (<50); Oxazepam Ur, GC/MS 192 ng/mL (<50); Temazepam, Confirm NEGATIVE ng/mL (<50)
== END 2021-12-09 13:57 | disposition home or self-care (01) | DRG 885 ==
LOC: ED 04:37 → SUATTDRO 08:48 → 3N 08:48